=== PATIENT | female | born 1965 | race Caucasian/White ===

== ENCOUNTER 2018-11-25 14:39 | Emergency (ER) | payer OTHER ==
[2018-11-25 15:15] VITALS: BP 126/78
--- NOTE | 2018-11-25 15:25 | UC ---
UC General HPI - HPI Summary HPI Summary: ill for over 10 days. began as a cough with chest congestion which is ongoing and now has sinus congestion with yellow drainage. here because feeling much worse since this weekend. has developed subjective fever and chills as well. tx otc medication with no relief. - History of Current Complaint Chief Complaint: UCRespiratory Stated Complaint: SINUS Time Seen by Provider: 11/25/18 15:10 Hx Obtained From: Patient Onset/Duration: Gradual Onset Timing: Constant Pain Intensity: 5 Associated Signs & Symptoms: Negative: Chest Pain, SOB - Allergy/Home Medications Allergies/Adverse Reactions: Allergies Allergy/AdvReac Type Severity Reaction Status Date / Time No Known Allergies Allergy Verified 11/25/18 15:12 PMH/Surg Hx/FS Hx/Imm Hx Previously Healthy: Yes - Surgical History Surgical History: Yes Surgery Procedure, Year, and Place: RIGHT FOOT- plate/screw, 04/26/18 - Family History Known Family History: Positive: Non-Contributory - Social History Occupation: Employed Full-time Alcohol Use: Weekly Substance Use Type: None Smoking Status (MU): Never Smoked Tobacco - Immunization History Vaccination Up to Date: Yes Review of Systems All Other Systems Reviewed And Are Negative: Yes Constitutional: Positive: Fever, Chills ENT: Positive: Nasal Discharge, Sinus Congestion, Sinus Pain/Tenderness Respiratory: Positive: Cough Physical Exam Triage Information Reviewed: Yes Appearance: Well-Appearing Vital Signs: Initial Vital Signs Temp 97.5 F 11/25/18 15:13 Pulse 63 11/25/18 15:13 Resp 16 11/25/18 15:13 BP 126/78 11/25/18 15:13 Pulse Ox 100 11/25/18 15:13 Vital Signs Reviewed: Yes Eyes: Positive: Conjunctiva Clear ENT: Positive: Pharynx normal, Nasal congestion, TMs normal, Sinus tenderness. Negative: Nasal drainage Neck: Positive: Supple, Nontender, No Lymphadenopathy Respiratory: Positive: No respiratory distress, Decreased breath sounds, Other: - congested-bronchospastic cough.. Negative: Crackles, Rhonchi, Wheezing Cardiovascular: Positive: RRR, No Murmur Abdomen Description: Positive: Nontender Musculoskeletal: Positive: ROM Intact Neurological: Positive: Alert Psychological: Positive: Age Appropriate Behavior Skin Exam: Normal Skin: Negative: Rashes Course/Dx - Differential Dx - Multi-Symptom Differential Diagnoses: Other - no concern for pneumonia. will cover for a presumptive bacterial infection due to duration of illness with abrupt worsening and new onset of the subjective f/c's. - Diagnoses Provider Diagnosis: Sinusitis, Cough Discharge - Sign-Out/Discharge Documenting (check all that apply): Patient Departure All imaging exams completed and their final reports reviewed: No Studies - Discharge Plan Condition: Stable Disposition: HOME Prescriptions: Albuterol HFA INHALER* [Ventolin HFA Inhaler*] 2 puff INH Q6H #1 mdi Amoxicillin/Clavulanate TAB* [Augmentin TAB 875*] 875 mg PO BID 10 Days #20 tab Benzonatate CAP* [Tessalon 100 MG CAP*] 100 mg PO TID PRN #10 cap PRN Reason: Cough Patient Education Materials: Sinusitis (ED), Acute Cough (ED) Referrals: [facility],Ivon Frey [Primary Care Provider] - 7 Days - Billing Disposition and Condition Condition: STABLE Disposition: Home
== END 2018-11-25 15:37 | disposition home or self-care (01) ==
LOC: UCCORT 14:39
DX: J32.9 Chronic sinusitis, unspecified (principal); R05 Cough; R09.89 Other specified symptoms and signs involving the circulatory and respiratory systems
CPT/HCPCS: 99202; G0463